=== PATIENT | female | born 1985 | race Caucasian/White ===

== ENCOUNTER → 2025-07-27 | Day surgery (SDC) | payer OTHER ==
[2025-07-26 09:49] VITALS: BMI 42.4
[~2025-07-27] MED LIST: Bupivacaine HCl 0.5%/Epinephrine 1:200,000/PF 30 ml Vial ONE; CEFAZOLIN 2 GM VIAL ONE
[2025-07-27 09:56] LABS: BHCG - Serum Negative (NEGATIVE); Pregs Control Bar Appear? YES (CONTROL BAR)
[2025-07-27 09:57] LABS: Pregs Control Background? CLEAR/WHITE (CLR/WHITE)
== END ==
LOC: CSHSDC 09:04
PROVIDERS: ATTEND Surgery
DX: K80.20 Calculus of gallbladder without cholecystitis without obstruction (principal); I10 Essential (primary) hypertension; E03.9 Hypothyroidism, unspecified; Z88.0 Allergy status to penicillin; Z88.1 Allergy status to other antibiotic agents; Z91.040 Latex allergy status; Z53.8 Procedure and treatment not carried out for other reasons; Z79.899 Other long term (current) drug therapy
CPT/HCPCS: 36415; 84703; J2250; J3010